=== PATIENT | male | born 1950 | race Caucasian/White ===

== ENCOUNTER 2020-06-10 22:09 | Emergency (ER) | payer OTHER ==
[~2020-06-10] VITALS: Ht 180.3 cm; Wt 68.2 kg
[2020-06-10 23:45] VITALS: BP 122/87
== END 2020-06-10 23:40 | disposition home or self-care (01) ==
LOC: ER 22:10
DX: S42.411A Displaced simple supracondylar fracture without intercondylar fracture of right humerus, initial encounter for closed fracture (principal); S09.8XXA Other specified injuries of head, initial encounter; M25.521 Pain in right elbow; M25.421 Effusion, right elbow; I10 Essential (primary) hypertension; G89.29 Other chronic pain; Z88.0 Allergy status to penicillin; W01.0XXA Fall on same level from slipping, tripping and stumbling without subsequent striking against object, initial encounter; Y93.89 Activity, other specified; Y92.89 Other specified places as the place of occurrence of the external cause; Y99.8 Other external cause status
CPT/HCPCS: 29105; 70450; 72125; 73080; 99285

== ENCOUNTER 2020-06-27 22:13 | Emergency (ER) | payer OTHER ==
[~2020-06-27] VITALS: Ht 180.3 cm; Wt 72.0 kg
--- NOTE | 2020-06-27 23:15 | NUR ---
spoke with Dr Dolly teague requesting pain medication for severe elbow pain reports running out of pain medication and needs a norco. order received and palced as verbal order
[2020-06-27] MEDS ORDERED: HYDROcodone/acetaminophen 10/325mg tab PO ONE (23:25)
--- NOTE | 2020-06-27 23:26 | NUR ---
to xray after pain medication
[2020-06-27 23:27] VITALS: BP 134/88
--- NOTE | 2020-06-27 23:32 | NUR ---
radiology orders completed
--- NOTE | 2020-06-28 00:04 | NUR ---
PT LEAVING WITHOUT DISCHARGE PAPERWORK OR RX. TALKED TO PATIENT AND GAVE VERBAL INSTRUCTIONS
== END 2020-06-28 00:05 | disposition home or self-care (01) ==
LOC: ER 22:14
DX: S42.414A Nondisplaced simple supracondylar fracture without intercondylar fracture of right humerus, initial encounter for closed fracture (principal); M25.521 Pain in right elbow; I10 Essential (primary) hypertension; G89.29 Other chronic pain; Z88.0 Allergy status to penicillin; X58.XXXA Exposure to other specified factors, initial encounter; Y93.89 Activity, other specified; Y92.89 Other specified places as the place of occurrence of the external cause; Y99.8 Other external cause status
CPT/HCPCS: 73080; 99283

== ENCOUNTER 2020-07-01 12:32 | Day surgery (SDC) | payer OTHER, MEDICARE ==
[2020-07-01] VITALS (9 sets, daily range): BP systolic 99–138; BP diastolic 64–88
[~2020-07-01] VITALS: Ht 180.3 cm; Wt 71.0 kg
[2020-07-01] MEDS ORDERED: famotidine 20mg tablet PO ONE (12:45)
[2020-07-01] MEDS ORDERED: cefazolin/dext.iso 2gm/50ml 50 ML IV ONE (12:45)
[2020-07-01] MEDS ORDERED: ringers solution, lacted 1,000 ML IV SCH ×2 (12:45→17:35)
[2020-07-01 14:36] LABS: BASOPHILS # (AUTO) 0.2 X10'3 (0-0.2); EOSINOPHILS # (AUTO) 0.4 X10'3 (0-0.9); MONOCYTES # (AUTO) 1.5 X10'3 (0-0.9); PRE OP HEMATOCRIT 36.7 % (42.0-52.0); PRE OP HEMOGLOBIN 11.8 g/dL (14.0-17.9)
[2020-07-01 14:37] LABS: ALBUMIN 3.1 G/DL (3.4-5.0); ALBUMIN/GLOBULIN RATIO 0.8 (1.1-1.5); ALKALINE PHOSPHATASE 100 IU/L (46-116); BLOOD UREA NITROGEN 19 MG/DL (7-18); BUN/CREATININE RATIO 25.7 (5.4-32.0); CALCIUM 8.8 MG/DL (8.5-10.1); CHLORIDE 103 MMOL/L (99-107); CREATININE 0.74 MG/DL (0.60-1.10); PRE OP ALT 14 U/L (30-65); PRE OP ANION GAP 5 (8-16); PRE OP AST 13 U/L (10-37); PRE OP BILIRUB, TOTAL 0.4 MG/DL (0.0-1.0); PRE OP GLUCOSE 95 MG/DL (70-104); PRE OP POTASSIUM 4.2 MMOL/L (3.4-5.1); PRE OP SODIUM 140 MMOL/L (135-145); TOTAL CARBON DIOXIDE 32.2 MMOL/L (24-32); TOTAL PROTEIN 6.9 G/DL (6.4-8.2); eGFR > 90 ML/MIN
[2020-07-01 14:38] LABS: EOSINOPHILS % (AUTO) 4.2 % (0-6); LYMPHOCYTES # (AUTO) 2.3 X10'3 (1.1-4.8); LYMPHOCYTES % (AUTO) 24.9 % (21-51); MEAN CORPUSCULAR VOLUME 87.5 FL (78-98); MEAN PLATELET VOLUME 9.2 FL (7.4-10.4); MONOCYTES % (AUTO) 16.1 % (2-12); NEUTROPHILS # (AUTO) 4.9 X10'3 (1.8-7.7); NEUTROPHILS % (AUTO) 52.8 % (42-75); PRE OP PLATELET COUNT 405 X10'3 (140-440); RED BLOOD COUNT 4.19 X10'6 (4.70-6.10); RED CELL DISTRIBUTION WIDTH 16.1 % (11.5-14.5)
[2020-07-01] MEDS ORDERED: bacitracin 15gm ointment TP ONE (14:38)
[2020-07-01] MEDS ORDERED: ceFAZolin 1000mg inj ONE (14:38)
[2020-07-01 15:34] LABS: ANISOCYTOSIS 1+; LARGE PLATELETS FEW; PLATELET ESTIMATE NORMAL; TOTAL CELLS COUNTED 100
[2020-07-01 15:35] LABS: SCHISTOCYTES 1+
[2020-07-01 15:36] LABS: ACANTHOCYTES 1+
[2020-07-01] MEDS ORDERED: sevoflurane 250ml liquid IH ONE (16:16)
[2020-07-01] MEDS ORDERED: MIDAZolam 5mg/5ml vial ONE (16:23)
[2020-07-01] MEDS ORDERED: fentaNYL /PF 50mcg/ml 5ml ampule ONE (16:29)
[2020-07-01] MEDS ORDERED: 0.9 % SODIUM CHLORIDE 10 ML VIAL ONE (17:28)
[2020-07-01] MEDS ORDERED: ePHEDrine 50MG/ML INJ. ONE (17:28)
[2020-07-01] MEDS ORDERED: ROPIVAcaine 0.5% (5mg/ml) 30ml vial ONE (17:28)
[2020-07-01] MEDS ORDERED: LIDOcaine 2% (20mg/ml) 5ml vial ONE (17:28)
[2020-07-01] MEDS ORDERED: propofol inj 20 ML IV ONE (17:29)
[2020-07-01] MEDS ORDERED: dexamethasone sod phosphate 4mg/ml inj. ONE (17:29)
[2020-07-01] MEDS ORDERED: ondansetron/PF 4mg/2ml inj ONE (17:29)
[2020-07-01] MEDS ORDERED: morphine 2 MG/ML inj. syringe IV PRN (17:35)
[2020-07-01] MEDS ORDERED: ondansetron/PF 4mg/2ml inj IV PRN (17:35)
[2020-07-01] MEDS ORDERED: acetaminophen 1,000mg/100ml IV 100 ML IV PRN (17:35)
[2020-07-01] MEDS ORDERED: meperidine/PF 25mg/ml syringe IV PRN ×3 (17:35)
[2020-07-01] MEDS ORDERED: proCHLORperazine 10 MG/2 ml inj IV PRN (17:35)
[2020-07-01] MEDS ORDERED: morphine 4 MG/ML inj SYRINge IV PRN (17:35)
[2020-07-01] MEDS ORDERED: labetalol 20mg/4ml (5mg/ml) syringe IV PRN (17:35)
[2020-07-01] MEDS ORDERED: hydrALAZINE 20mg/ml inj. IV PRN (17:35)
--- NOTE | 2020-07-01 18:49 | NUR ---
Received from OR via [facility], accompanied by Anesthesiologist DR SANCHEZ and report given by Anesthesiologist. 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 Addendum: 07/01/20 at 1914 by Jesi Walsh RN Amended: Links added.
--- NOTE | 2020-07-01 20:19 | NUR ---
PT VOIDED, REMAINS COMFORTABLE, TOLERATING PO, D/C INSTRUCTIONS GIVEN AND GONE OVER W/PT WHO VERBALIZED UNDERSTANDING, PT D/CD TO HOME VIA W/C TO PRIVATE VEHICLE W/O INCIDENT. Addendum: 07/01/20 at 2033 by Jesi Walsh RN Amended: Links added.
== END 2020-07-01 20:19 | disposition home or self-care (01) ==
LOC: PAS 12:32
PROVIDERS: ATTEND Orthopaedic Surgery
DX: S42.491A Other displaced fracture of lower end of right humerus, initial encounter for closed fracture (principal); F17.220 Nicotine dependence, chewing tobacco, uncomplicated; G89.18 Other acute postprocedural pain; N40.0 Benign prostatic hyperplasia without lower urinary tract symptoms; I10 Essential (primary) hypertension; Z88.0 Allergy status to penicillin; Z79.899 Other long term (current) drug therapy; Z97.0 Presence of artificial eye; Z98.890 Other specified postprocedural states; W19.XXXA Unspecified fall, initial encounter; Y93.89 Activity, other specified; Y92.89 Other specified places as the place of occurrence of the external cause; Y99.8 Other external cause status
CPT/HCPCS: 24546; 36415; 64417; 76942; 80053; 85025; 93005; C1713; J0690; J1100; J2001; J2250; J2405; J2704; J3010; J7120; 85007; A4215; A4565; A4618; A6449; A7000; J2795

== ENCOUNTER 2020-08-20 09:21 | Emergency (ER) | payer MEDICARE, OTHER ==
[~2020-08-20] VITALS: Ht 180.3 cm; Wt 72.7 kg
[~2020-08-20 09:21] MED LIST: LIDOcaine 1% w/epiNEPHrine 1:200,000 30ml vial ONE
[2020-08-20] MEDS ORDERED: normal saline 1000ML IV soln IVB ONE (11:15)
[2020-08-20] MEDS ORDERED: HYDROcodone/acetaminophen 10/325mg tab PO ONE (11:20)
[2020-08-20] MEDS ORDERED: LIDOcaine 1% W/epiNEPHrine 1:100,000 20ml vial SQ ONE (12:50)
[2020-08-20] MEDS ORDERED: OXYC-150 PO (13:24)
[2020-08-20] MEDS ORDERED: CEPH500C5 PO (13:24)
[2020-08-20] MEDS ORDERED: oxyCODONE/APAP 10/325mg tablet PO ONE (13:25)
[2020-08-20] MEDS ORDERED: cephalexin 250mg capsule PO ONE (13:25)
[2020-08-20 13:50] VITALS: BP 137/85
== END 2020-08-20 13:52 | disposition home or self-care (01) ==
LOC: ER 09:21
DX: S91.342A Puncture wound with foreign body, left foot, initial encounter (principal); I10 Essential (primary) hypertension; Z88.0 Allergy status to penicillin; W34.00XA Accidental discharge from unspecified firearms or gun, initial encounter; Y93.89 Activity, other specified; Y92.89 Other specified places as the place of occurrence of the external cause; Y99.8 Other external cause status
CPT/HCPCS: 10120; 73610; 73630; 73650; 99284; 99285

== ENCOUNTER 2020-08-29 18:20 | Emergency (ER) | payer OTHER ==
[~2020-08-29 18:20] MED LIST changes: +CEPH500C5 PO; -LIDOcaine 1% w/epiNEPHrine 1:200,000 30ml vial ONE; +OXYC-150 PO
== END 2020-08-29 18:54 | disposition left against medical advice (07) ==
LOC: ER 18:21
DX: T14.8XXA Other injury of unspecified body region, initial encounter (principal); Z53.21 Procedure and treatment not carried out due to patient leaving prior to being seen by health care provider; X58.XXXA Exposure to other specified factors, initial encounter; Y93.89 Activity, other specified; Y92.89 Other specified places as the place of occurrence of the external cause; Y99.8 Other external cause status

== ENCOUNTER 2021-01-03 02:40 | Emergency (ER) | payer OTHER ==
[~2021-01-03] VITALS: Ht 180.3 cm; Wt 72.7 kg
[~2021-01-03 02:40] MED LIST changes: +CEPH-585 PO; -CEPH500C5 PO
[2021-01-03] MEDS ORDERED: morphine 4 MG/ML inj SYRINge IV ONE ×2 (03:30→04:45)
[2021-01-03] MEDS ORDERED: ondansetron/PF 4mg/2ml inj IV ONE (03:30)
[2021-01-03 03:39] LABS: ALANINE AMINOTRANSFERASE 30 U/L (12-78); ALBUMIN 2.8 G/DL (3.4-5.0); ALBUMIN/GLOBULIN RATIO 0.7 (1.1-1.5); ALKALINE PHOSPHATASE 120 IU/L (46-116); ANION GAP 6 (8-16); ASPARTATE AMINO TRANSFERASE 31 U/L (10-37); BASOPHILS # (AUTO) 0.2 X10'3 (0-0.2); BASOPHILS % (AUTO) 1.2 % (0-1); BILIRUBIN,TOTAL 0.7 MG/DL (0.1-1.0); CALCIUM 8.2 MG/DL (8.5-10.1); CHLORIDE 101 MMOL/L (99-107); CREATININE 0.88 MG/DL (0.60-1.10); EOSINOPHILS # (AUTO) 0.2 X10'3 (0-0.9); EOSINOPHILS % (AUTO) 1.3 % (0-6); GLUCOSE 91 MG/DL (70-104); HEMATOCRIT 35.5 % (42.0-52.0); HEMOGLOBIN 11.4 g/dl (14.0-17.9); LIPASE < 50 U/L (73-393); LYMPHOCYTES # (AUTO) 2.2 X10'3 (1.1-4.8); LYMPHOCYTES % (AUTO) 12.9 % (21-51); MEAN CORPUSCULAR HEMOGLOBIN 27.3 PG (27.0-31.0); MEAN CORPUSCULAR HGB CONC 32.2 g/dL (33.0-36.5); MEAN CORPUSCULAR VOLUME 84.8 FL (78-98); MEAN PLATELET VOLUME 8.8 FL (7.4-10.4); MONOCYTES # (AUTO) 3.6 X10'3 (0-0.9); MONOCYTES % (AUTO) 21.1 % (2-12); NEUTROPHILS # (AUTO) 10.9 X10'3 (1.8-7.7); NEUTROPHILS % (AUTO) 63.5 % (42-75); PLATELET COUNT 310 X10'3 (140-440); POTASSIUM 4.6 MMOL/L (3.5-5.1); RED BLOOD COUNT 4.18 X10'6 (4.70-6.10); RED CELL DISTRIBUTION WIDTH 16.9 % (11.5-14.5); SODIUM 138 MMOL/L (135-145); TOTAL CARBON DIOXIDE 31.3 MMOL/L (24-32); TOTAL PROTEIN 7.1 G/DL (6.4-8.2); WHITE BLOOD COUNT 17.1 X10'3 (4.5-11.0); eGFR 86 ML/MIN
[2021-01-03 03:40] LABS: BLOOD UREA NITROGEN 16 MG/DL (7-18); BUN/CREATININE RATIO 18.2 (5.4-32.0)
[2021-01-03] MEDS ORDERED: metroNIDAZOLE-Flagyl 500mg/NS 100 ML IV ONE (04:10)
[2021-01-03] MEDS ORDERED: CefTRIAXone 2gm/D5W 50ml BAG 50 ML IV ONE (04:10)
[2021-01-03] MEDS ORDERED: normal saline 1000ml 1,000 ML IV ONE (04:15)
[2021-01-03] MEDS ORDERED: bisacodyl 5mg tablet.DR PO ONE (04:40)
[2021-01-03] MEDS ORDERED: ketorolac trometh. 30mg/ml inj. IV ONE (04:40)
[2021-01-03] MEDS ORDERED: MAGN296S68 PO (04:43)
[2021-01-03 05:38] VITALS: BP 138/74
[2021-01-03 06:31] LABS: TOTAL CELLS COUNTED 100
[2021-01-03 06:34] LABS: ACANTHOCYTES 1+; ANISOCYTOSIS 1+; ELLIPTOCYTES 1+; LARGE PLATELETS FEW; PLATELET ESTIMATE NORMAL; POLYCHROMASIA FEW; SCHISTOCYTES FEW; TEAR DROP CELLS FEW
== END 2021-01-03 05:40 | disposition home or self-care (01) ==
LOC: ER 02:40
DX: K59.00 Constipation, unspecified (principal); R10.13 Epigastric pain; R10.12 Left upper quadrant pain; I10 Essential (primary) hypertension; F17.220 Nicotine dependence, chewing tobacco, uncomplicated; G89.29 Other chronic pain; Z98.890 Other specified postprocedural states; Z88.0 Allergy status to penicillin; Z79.899 Other long term (current) drug therapy
CPT/HCPCS: 71045; 74176; 80053; 83690; 85007; 85025; 96361; 96374; 96375; 96376; 99285; J1885; J2270; J2405; J7030; J0696